=== PATIENT | male | born 2000 | race African-American/Black ===

== ENCOUNTER 2025-08-12 09:24 | Emergency (ER) | payer OTHER, SELFPAY ==
--- NOTE | ~2025-08-12 | XR_ITS ---
EXAMINATION: XR chest 2V, 08/12/2025 9:50 PHYSICIAN SURGEON HISTORY: PT STATES CHEST PRESSURE ON LEFT SIDE TODAY COMPARISON: No comparisons available. Technique: 2 views obtained. Findings: The lungs are clear, no effusion. No pneumothorax. Heart is normal size. Mediastinal and hilar contours are within normal limits. Bony thorax no acute abnormality. Impression: No acute cardiopulmonary abnormality. Reviewed, dictated and finalized at location P. ICIAN SURGEON Impression: No acute cardiopulmonary abnormality.
--- NOTE | 2025-08-12 09:26 | ECG_ITS ---
Test Date: 2025-08-12 09:32:11 Measurements Intervals [place] Rate: 68 P: 64 WI: 98 QRS: 87 QRSD: 86 T: 74 QT: 350 QTc: 373 Interpretive Statements SINUS RHYTHM WITH SHORT WI INTERVAL ST ELEVATION, PROBABLY EARLY REPOLARIZATION [ST ELEVATION WITH NORMALLY INFLECTED T-WAVE] No previous ECG available for comparison Electronically Signed On 08-12-2025 13:20:06 BOND MANAGER by Ivan Baker M.D.
[2025-08-12 09:28] VITALS: BP 141/98; PULSE 79; RESP 18; TEMP 36.4; O2SAT 100
[2025-08-12 09:49] LABS: Hematocrit 50.1 % (42.0-52.0); Hemoglobin 16.5 g/dL (14.0-18.0); Immature Granulocyte Percent A 0.3 % (0-0.5); Lymphocytes Absolute Auto 1.87 K/mm3 (0.9-3.2); Mean Corpuscular HGB Conc 32.9 g/dl (32-36); Mean Corpuscular Hemoglobin 28.1 pg (26-34); Mean Corpuscular Volume 85.3 fl (80-100); Nucleated Red Blood Cells Absolute Auto 0.000 K/mm3 (0.0-0.012); Nucleated Red Blood Cells Perc 0.0 % (0.0-0.2); Platelet Count Result 174 k/mm3 (150-375); Red Blood Count 5.87 M/mm3 (4.6-6.20); White Blood Count 6.5 K/mm3 (4.5-10.0)
[2025-08-12 10:02] LABS: Alanine Aminotransferase 19 U/L (6-50); Albumin Level 4.8 g/dL (3.5-5.1); Alkaline Phosphatase 56 U/L (38-126); Anion Gap 8 mmol/L (4-12); Aspartate Amino Transferase 31 U/L (17-59); Bilirubin,Total 0.9 mg/dL (0.2-1.3); Blood Urea Nitrogen 15 mg/dL (9-20); Calcium 9.3 mg/dL (8.4-10.2); Carbon Dioxide 28 mmol/L (22-30); Chloride 99 mmol/L (98-107); Estimated CRCL calculation 75 ml/min; Estimated Glomerular Filt Rate > 60; Glucose 92 mg/dL (65-110); INR 1.0; Lipase 28 U/L (23-300); Potassium 4.6 mmol/L (3.4-5.0); Prothrombin Time 13.4 Seconds (11.1-14.7); Sodium 135 mmol/L (137-145); Total Protein 8.3 g/dL (6.3-8.2)
[2025-08-12 10:03] LABS: Partial Thromboplastin Time 27.9 Seconds (22.3-36.8)
[2025-08-12 10:13] LABS: Troponin I < 0.012 ng/mL (0.000-0.034)
--- NOTE | 2025-08-12 11:49 | ED_ITS ---
HPI - Chest Pain General Chief Complaint: Chest Pain <Arlen Burt PA-C - Last Filed: 08/12/25 17:22> Stated Complaint: cp, sob <Arlen Burt PA-C - Last Filed: 08/12/25 17:22> Time Seen by Provider: 08/12/25 11:49 <Arlen Burt PA-C - Last Filed: 08/12/25 17:22> Focused HPI: This is a 24 year old male that presents to the ER for sharp substernal chest pain. Ongoing over the last couple of years intermittently. Reports worsening over the last couple of weeks. Reports some shortness of breath. No recent travel or surgery. Denies fever, cough, lower extremity edema, abdominal pain, vomiting. GENERAL: Well-appearing, well-nourished, and in no acute distress. HEAD: Normocephalic, atraumatic. CHEST: Clear to auscultation. ?No respiratory distress. HEART: Regular rate and rhythm.? NEURO: ?Alert and oriented x3. Patient screened in triage and initial orders placed.? ?Additional care and disposition to be based upon?diagnostic testing and treatment. <Arlen Burt PA-C - Last Filed: 08/12/25 17:22> History of Present Illness HPI narrative: I agree with the above HPI Patient states that he did have some heavy alcohol consumption approximately 2 weeks ago then the next day he was having intense epigastric pain. Patient states he had felt like he had a ?chip? that he had swallowed that was causing the pain. Patient denies any prior cardiac history. <Mir Randle MD - Last Filed: 08/12/25 21:28> Related Data Allergies/Adverse Reactions: Allergies Allergy/AdvReac Type Severity Reaction Status Date / Time No Known Allergies Allergy Verified 08/12/25 09:28 <Arlen Burt PA-C - Last Filed: 08/12/25 17:22> Review of Systems 2 Review of Systems: All systems reviewed & are unremarkable except as noted in HPI and below <Arlen Burt PA-C - Last Filed: 08/12/25 17:22> Exam 2 Narrative: APPEARANCE: Well appearing, no pain, no distress, well-nourished. HEAD: normocephalic, atraumatic. EYES: PERRLA/EOMI, conjunctivae clear. NOSE: Normal no drainage EARS:TMS clear with good light reflex. THROAT: Pharynx clear, no exudate. NECK: Supple. No adenopathy, no masses. RESPIRATORY: Airway patent, respirations nonlabored. Clear to auscultation bilaterally, no rales, rhonchi, wheezing. CARDIOVASCULAR: Regular rate and rhythm without murmurs rubs or gallops. ABDOMINAL: No significant tenderness to palpation MUSCULOSKELETAL: Moves all extremities. Strength/ROM intact, No edema, No calf tenderness. NEURO: Alert. Cranial nerves II through XII intact. Good gait. Good coordination SKIN: Warm, dry. Normal Color <Mir Randle MD - Last Filed: 08/12/25 21:28> Course Vital Signs Vital signs: Vital Signs Temperature 97.6 F 08/12/25 09:28 Pulse Rate 79 08/12/25 09:28 Respiratory Rate 18 08/12/25 09:28 Blood Pressure 141/98 H 08/12/25 09:28 Pulse Oximetry 100 08/12/25 09:28 Oxygen Delivery Room Air 08/12/25 09:28 Temperature 97.6 F 08/12/25 09:28 Pulse Rate 65 08/12/25 15:51 Respiratory Rate 18 08/12/25 15:51 Blood Pressure 129/76 08/12/25 15:51 Pulse Oximetry 100 08/12/25 15:51 Oxygen Delivery Room Air 08/12/25 09:28 <Arlen Burt PA-C - Last Filed: 08/12/25 17:22> Vital Signs Temperature 97.6 F 08/12/25 09:28 Pulse Rate 79 08/12/25 09:28 Respiratory Rate 18 08/12/25 09:28 Blood Pressure 141/98 H 08/12/25 09:28 Pulse Oximetry 100 08/12/25 09:28 Oxygen Delivery Room Air 08/12/25 09:28 Temperature 97.6 F 08/12/25 09:28 Pulse Rate 65 08/12/25 15:51 Respiratory Rate 18 08/12/25 15:51 Blood Pressure 129/76 08/12/25 15:51 Pulse Oximetry 100 08/12/25 15:51 Oxygen Delivery Room Air 08/12/25 09:28 <Mir Randle MD - Last Filed: 08/12/25 21:28> MDM - Chest Pain MDM Narrative Medical decision making narrative: Twenty 4-year-old male present to the emergency department for evaluation for epigastric pain. Patient is currently afebrile and leukocytosis hemoglobin of 16.5. INR 1.0. Patient's D-dimer is not elevated. Patient did have negative serial troponins. Lipase is also negative. Chest x-ray shows no acute cardiopulmonary abnormality. EKG shows normal sinus rhythm with no evidence of acute STEMI. Patient was treated with a GI cocktail for suspicion of alcoholic gastritis versus esophagitis. Patient does appear to be describing esophageal spasm. Patient was treated with a dose of IV Protonix and will be started on omeprazole. Patient will be encouraged close follow-up with GI. All questions concerns were addressed. <Mir Randle MD - Last Filed: 08/12/25 21:28> Differential Diagnosis Differential diagnosis: Likely fracture of rib, pneumothorax, atypical chest pain, costochondritis, chest pain and biliary colic <Mir Randle MD - Last Filed: 08/12/25 21:28> Lab Data Attestation: I reviewed the patient's lab results. <Mir Randle MD - Last Filed: 08/12/25 21:28> Result diagrams: 08/12/25 09:43 08/12/25 09:43 <Arlen Burt PA-C - Last Filed: 08/12/25 17:22> Labs: Lab Results 08/12/25 08/12/25 08/12/25 Range/Units 09:43 13:18 14:17 WBC 6.5 (4.5-10.0) K/mm3 RBC 5.87 (4.6-6.20) M/mm3 Hgb 16.5 (14.0-18.0) g/dL Hct 50.1 (42.0-52.0) % MCV 85.3 (80-100) fl MCH 28.1 (26-34) pg MCHC 32.9 (32-36) g/dl RDW 12.2 (11.5-14.5) % Plt Count 174 (150-375) k/mm3 MPV 10.3 (7.4-10.4) fl Immature Gran % (Auto) 0.3 (0-0.5) % Neut % (Auto) 63.8 (45.5-73.1) % Lymph % (Auto) 28.9 (18.3-44.2) % [place] % (Auto) 5.6 (2.6-8.5) % Eos % (Auto) 0.8 (0-4.4) % Baso % (Auto) 0.6 (0.2-1.2) % Lymph # (Auto) 1.87 (0.9-3.2) K/mm3 [place] # (Auto) 0.4 (0.1-0.6) K/mm3 Eos # (Auto) 0.1 (0-0.3) K/mm3 Baso # (Auto) 0.0 (0.0-0.1) K/mm3 Abs Immat Gran (auto) 0.02 (0.00-0.031) K/mm3 Absolute Neuts (auto) 4.1 (1.3-6.7) K/mm3 Absolute Nucleated RBC 0.000 (0.0-0.012) K/mm3 Nucleated RBC % 0.0 (0.0-0.2) % PT 13.4 (11.1-14.7) Seconds INR 1.0 APTT 27.9 (22.3-36.8) Seconds D-Dimer < 0.27 (<0.48) ug/mL Sodium 135 L (137-145) mmol/L Potassium 4.6 (3.4-5.0) mmol/L Chloride 99 (98-107) mmol/L Carbon Dioxide 28 (22-30) mmol/L Anion Gap 8 (4-12) mmol/L BUN 15 (9-20) mg/dL Creatinine 1.31 H (0.7-1.3) mg/dL Estim Creat Clear Calc 75 ml/min Estimated GFR > 60 (59 - ) Glucose 92 (65-110) mg/dL Calcium 9.3 (8.4-10.2) mg/dL Total Bilirubin 0.9 (0.2-1.3) mg/dL AST 31 (17-59) U/L ALT 19 (6-50) U/L Alkaline Phosphatase 56 (38-126) U/L Troponin I < 0.012 < 0.012 (0.000-0.034) ng/mL Total Protein 8.3 H (6.3-8.2) g/dL Albumin 4.8 (3.5-5.1) g/dL Lipase 28 (23-300) U/L <Arlen Burt PA-C - Last Filed: 08/12/25 17:22> Lab Results 08/12/25 08/12/25 08/12/25 Range/Units 09:43 13:18 14:17 WBC 6.5 (4.5-10.0) K/mm3 RBC 5.87 (4.6-6.20) M/mm3 Hgb 16.5 (14.0-18.0) g/dL Hct 50.1 (42.0-52.0) % MCV 85.3 (80-100) fl MCH 28.1 (26-34) pg MCHC 32.9 (32-36) g/dl RDW 12.2 (11.5-14.5) % Plt Count 174 (150-375) k/mm3 MPV 10.3 (7.4-10.4) fl Immature Gran % (Auto) 0.3 (0-0.5) % Neut % (Auto) 63.8 (45.5-73.1) % Lymph % (Auto) 28.9 (18.3-44.2) % [place] % (Auto) 5.6 (2.6-8.5) % Eos % (Auto) 0.8 (0-4.4) % Baso % (Auto) 0.6 (0.2-1.2) % Lymph # (Auto) 1.87 (0.9-3.2) K/mm3 [place] # (Auto) 0.4 (0.1-0.6) K/mm3 Eos # (Auto) 0.1 (0-0.3) K/mm3 Baso # (Auto) 0.0 (0.0-0.1) K/mm3 Abs Immat Gran (auto) 0.02 (0.00-0.031) K/mm3 Absolute Neuts (auto) 4.1 (1.3-6.7) K/mm3 Absolute Nucleated RBC 0.000 (0.0-0.012) K/mm3 Nucleated RBC % 0.0 (0.0-0.2) % PT 13.4 (11.1-14.7) Seconds INR 1.0 APTT 27.9 (22.3-36.8) Seconds D-Dimer < 0.27 (<0.48) ug/mL Sodium 135 L (137-145) mmol/L Potassium 4.6 (3.4-5.0) mmol/L Chloride 99 (98-107) mmol/L Carbon Dioxide 28 (22-30) mmol/L Anion Gap 8 (4-12) mmol/L BUN 15 (9-20) mg/dL Creatinine 1.31 H (0.7-1.3) mg/dL Estim Creat Clear Calc 75 ml/min Estimated GFR > 60 (59 - ) Glucose 92 (65-110) mg/dL Calcium 9.3 (8.4-10.2) mg/dL Total Bilirubin 0.9 (0.2-1.3) mg/dL AST 31 (17-59) U/L ALT 19 (6-50) U/L Alkaline Phosphatase 56 (38-126) U/L Troponin I < 0.012 < 0.012 (0.000-0.034) ng/mL Total Protein 8.3 H (6.3-8.2) g/dL Albumin 4.8 (3.5-5.1) g/dL Lipase 28 (23-300) U/L <Mir Randle MD - Last Filed: 08/12/25 21:28> Imaging Data Attestation: I personally reviewed and interpreted this imaging study as follows: <Mir Randle MD - Last Filed: 08/12/25 21:28> My impression: chest x-ray: No acute cardiopulmonary abnormality <Mir Randle MD - Last Filed: 08/12/25 21:28> Radiologist's impression: ITS Impressions Chest X-Ray 08/12/25 10:01 Impression: No acute cardiopulmonary abnormality. <Arlen Burt PA-C - Last Filed: 08/12/25 17:22> ECG Data EKG #1: Attestation: I personally reviewed and interpreted this ECG as follows: <Mir Randle MD - Last Filed: 08/12/25 21:28> EKG Interpretation: normal rate, sinus rhythm, no ectopy, non-specific ST changes, normal QRS, normal QT and NL axis <Mir Randle MD - Last Filed: 08/12/25 21:28> Discharge Plan Discharge Clinical Impression: Esophagitis Chest pain Qualifiers: Chest pain type: unspecified Qualified Code(s): R07.9 - Chest pain, unspecified <Arlen Burt PA-C - Last Filed: 08/12/25 17:22> Patient Disposition: Home <Arlen Burt PA-C - Last Filed: 08/12/25 17:22> Condition: Stable <Arlen Burt PA-C - Last Filed: 08/12/25 17:22> Instructions: Antibiotic Form, Chest Pain (ED), Diet for Stomach Ulcers and Gastritis (ED) <Arlen Burt PA-C - Last Filed: 08/12/25 17:22> Additional Instructions: Avoid NSAIDs and avoid alcohol. Take omeprazole as directed for the next 14 days. Have close follow-up with GI. Maalox as needed for intermittent epigastric pain. If you have any worsening symptoms please call or return to the emergency department. <Arlen Burt PA-C - Last Filed: 08/12/25 17:22> Patient Language: Maltese <Arlen Burt PA-C - Last Filed: 08/12/25 17:22> Prescriptions: New omeprazole 20 mg capsule,delayed release(DR/EC) 20 mg PO DAILY 14 Days Qty: 14 0RF <Arlen Burt PA-C - Last Filed: 08/12/25 17:22> Follow-up/Referrals: PHYSICIAN,DISHTANK OPERATOR [Primary Care Provider, Internal Medicine] <Arlen Burt PA-C - Last Filed: 08/12/25 17:22> Quality HEART score for chest pain patients History: slightly suspicious <Mir Randle MD - Last Filed: 08/12/25 21:28> ECG: normal <Mir Randle MD - Last Filed: 08/12/25 21:28> Age: < or = to 45 years <Mir Randle MD - Last Filed: 08/12/25 21:28> Risk factors: 1 or 2 risk factors <Mir Randle MD - Last Filed: 08/12/25 21:28> Troponin: < or = to 1x normal limit <Mir Randle MD - Last Filed: 08/12/25 21:28> Heart score: 1 <Mir Rnadle MD - Last Filed: 08/12/25 21:28>
--- NOTE | 2025-08-12 13:08 | ECG_ITS ---
Test Date: 2025-08-12 13:22:28 Measurements Intervals [place] Rate: 59 P: 55 NM: 106 QRS: 87 QRSD: 90 T: 69 QT: 375 QTc: 372 Interpretive Statements SINUS BRADYCARDIA EARLY REPOLARIZATION [ST ELEVATION WITH NORMALLY INFLECTED T-WAVE] Compared to ECG 08/12/2025 09:32:11 Sinus rhythm no longer present Electronically Signed On 08-12-2025 13:25:14 ROTARY PLANER SET UP OPERATOR by Ivan Baker M.D.
[2025-08-12 13:46] LABS: Troponin I < 0.012 ng/mL (0.000-0.034)
--- OUTSIDE RECORDS SUMMARY | 2025-08-12 14:58 | XMS_ITS | Clinical Summary ---
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 Pain in shoulder region 03/07/2022 Surgical History Surgery Date Site/Laterality Comments NO PAST SURGERIES Medical History Medical History Date Comments No pertinent past medical history Family History Medical History Relation Name Comments No Known Problems Brother Diabetes Father Hypertension Father Pancreatic cancer Father No Known Problems Mother No Known Problems Sister Relation Name Status Comments Brother Alive Father Alive Mother Alive Sister Alive Social History Tobacco Use Types Packs/Day Years Used Date Smoking Tobacco: Never Smokeless Tobacco: Never Alcohol Use Standard Drinks/Week Comments Never 0 (1 standard drink = 0.6 oz pur e alcohol) AUDIT-C Answer Date Recorded Frequency of Alcohol Consumption Not on file 03/07/2022 Q2: How many drinks containi ng alcohol do you have on a typical day when you are drinking? 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 Gender Identity Not on file Sexual Orientation Not on file Last Filed Vital Signs Vital Sign Reading Time Taken Comments Blood Pressure 120/60 06/06/2022 2:32 PM CDT Pulse 64 06/06/2022 2:32 PM CDT Temperature 36.8 C (98.3 F) 06/06/2022 2:32 PM CDT Respiratory Rate 16 06/06/2022 2:32 PM CDT Oxygen Saturation 99% 03/09/2022 4:45 AM CDT Inhaled Oxygen Concentration - - Weight 72.6 kg (160 lb) 06/28/2022 10:37 AM CDT pt reported Height 170.2 cm (5' 7) 06/28/2022 10:37 AM CDT pt reported Body Mass Index 25.06 06/28/2022 10:37 AM CDT Plan of Treatment Not on file Insurance [facility] CHOICE PLUS [facility] CHOICE PLUS Care Teams Roll Sheeting Cutter Relationship Specialty Start Date End Date Jhonathan Richmond MD PCP - General Family Medicine 07/28/20
[2025-08-12] MEDS: PANTOPRAZOLE 40 MG TABLET PO (15:43)
[2025-08-12] MEDS: BELLADONNA ALK/PHENOB ELIX 10 ML, MAG HYDROX/ALUMINUM HYD/SIMETH 30 ML, LIDOCAINE 2% VI... PO (15:43)
[2025-08-12 15:51] VITALS: BP 129/76; PULSE 65; RESP 18; O2SAT 100
== END 2025-08-12 15:50 | disposition home or self-care (01) ==
PROVIDERS: Emergency Medicine; Emergency Provider Emergency Medicine
DX: K20.90 Esophagitis, unspecified without bleeding (principal); R07.9 Chest pain, unspecified
CPT/HCPCS: 36415; 71046; 80053; 83690; 84484; 85025; 85380; 85610; 85730; 93005; 96374; 99284; A9270